=== PATIENT | female | born 1935 | race Caucasian/White ===

== ENCOUNTER 2017-06-01 17:07 | Inpatient (IN) | payer MEDICARE, MEDICAID ==
[~2017-06-01] VITALS: Ht 160 cm; Wt 61.2 kg
[~2017-06-01 17:07] MED LIST: ASPI-1159 PO; BENA20TA3 PO; GLIP10TA10 PO; LOSA1TAB33 PO; MAPAP; METF10002 PO
[2017-06-01 18:52] LABS: PROTHROMBIN TIME 10.2 sec (9.4-11.6)
[2017-06-01 18:58] LABS: CARBON DIOXIDE 23 mEq/L (21-32); CHLORIDE 100 mEq/L (98-107); HEMATOCRIT. 28.4 % (36.0-48.0); HEMOGLOBIN. 9.8 g/dL (12.0-16.0); MEAN CORPUSCULAR HEMOGLOBIN 32.8 pg (28.0-32.0); MEAN CORPUSCULAR VOLUME 94.7 fL (81.0-99.0); MEAN PLATELET VOLUME 7.5 fl (7.4-10.4); PLATELET 259 x1000/uL (130-400); RED CELL DISTRIBUTION WIDTH 12.4 % (11.6-14.6)
[2017-06-01 19:04] LABS: TROPONIN I < 0.02 ng/mL (0.00-0.04)
[2017-06-01] MEDS ORDERED: KETOROLAC 30MG/ML VIAL IV ONE (19:15)
[2017-06-01 19:28] LABS: PLATELET ESTIMATE NORMAL
[2017-06-01] MEDS ORDERED: SODIUM CHLORIDE 0.9% 1,000 ML IV SCH (20:21)
[2017-06-01] MEDS ORDERED: ACETAMINOPHEN 325MG TABLET PO PRN (20:30)
[2017-06-01] MEDS ORDERED: IBUPROFEN 600MG TABLET PO PRN (20:30)
[2017-06-01 23:20] VITALS: BP 118/49
[2017-06-02] VITALS: BP 118/49
[2017-06-02] MEDS ORDERED: PRAV20TA57 PO (00:24)
[2017-06-02] MEDS ORDERED: BENA1TAB21 PO (00:24)
[2017-06-02] MEDS ORDERED: GABA-531 PO (00:24)
[2017-06-02] MEDS ORDERED: LEVO50TA8 PO (00:24)
[2017-06-02] MEDS ORDERED: LISI2.5T47 PO (00:24)
[2017-06-02] MEDS ORDERED: CLONIDINE 0.1MG TABLET PO PRN (01:15)
[2017-06-02] MEDS ORDERED: DEXTROSE 50% WATER 50ML SYRINGE IV PRN (01:15)
[2017-06-02 04:00] VITALS: BP 108/42
[2017-06-02] MEDS: BLOOD SUGAR DIAGNOSTIC STRIP TEST SCH ×4 (06:37→19:58)
[2017-06-02] MEDS: LEVOTHYROXINE SODIUM 50MCG TABLET PO SCH (06:38)
[2017-06-02] MEDS: GABAPENTIN 300MG CAPSULE PO SCH ×3 (06:38→21:53)
[2017-06-02 07:04] LABS: EOSINOPHILS % 1.5 % (0.0-5.0); HEMATOCRIT. 23.4 % (36.0-48.0); HEMOGLOBIN. 8.2 g/dL (12.0-16.0); LYMPHOCYTES % 16.4 % (20.0-50.0); MEAN CORPUSCULAR HEMOGLOBIN 33.2 pg (28.0-32.0); MEAN PLATELET VOLUME 7.4 fl (7.4-10.4); MONOCYTES % 11.7 % (2.0-8.0); NEUTROPHILS % 69.4 % (40.0-76.0); PLATELET 218 x1000/uL (130-400); RED BLOOD CELL COUNT 2.46 mill/uL (4.2-5.4); RED CELL DISTRIBUTION WIDTH 12.4 % (11.6-14.6)
[2017-06-02] MEDS ORDERED: METFORMIN HCL 500MG TABLET PO SCH (07:40)
[2017-06-02] MEDS ORDERED: INSULIN LISPRO 100 UNITS/ML SUBCUT SCH (07:40)
[2017-06-02 08:00] VITALS: BP 120/57
[2017-06-02] MEDS: ASPIRIN 81MG EC TABLET PO SCH (08:43)
[2017-06-02] MEDS: ENOXAPARIN 30MG/0.3ML SYR SUBCUT SCH (08:43)
[2017-06-02] MEDS: AMLODIPINE 10MG TABLET PO SCH (08:45)
[2017-06-02] MEDS: METOPROLOL TARTRATE 25MG TABLET PO SCH ×2 (08:45→21:54)
[2017-06-02] MEDS ORDERED: MEDICATION NOT ON FORMULARY EA (Pravastatin Sodium 1 TAB) PO SCH (09:00)
[2017-06-02] MEDS ORDERED: SODIUM CHLORIDE 0.9% 500 ML IV NR (10:30)
[2017-06-02 12:00] VITALS: BP 118/50
[2017-06-02 12:22] LABS: AMMONIA < 10 uMol/L (<32)
[2017-06-02] MEDS: INSULIN LISPRO 100 UNITS/ML SUBCUT SCH ×3 (12:38→21:56)
[2017-06-02 16:00] VITALS: BP 159/70
[2017-06-02 18:17] LABS: CLARITY URINE TURBID (CLEAR); COLOR URINE YELLOW (YELLOW); GLUCOSE URINE TRACE (NEGATIVE); KETONES URINE NEGATIVE (NEGATIVE); LEUKOCYTE ESTERASE URINE 3+ (NEGATIVE); NITRITE URINE NEGATIVE (NEGATIVE); OCCULT BLOOD URINE 1+ (NEGATIVE); PROTEIN URINE 1+ (NEGATIVE); SPECIFIC GRAVITY URINE 1.016 (1.005-1.030); UROBILINOGEN URINE 0.2 E.U./dL (0.2-1.0)
[2017-06-02 19:14] LABS: *AMPHETAMINES SCREEN URINE NEGATIVE (NEGATIVE); *BARBITURATES SCREEN URINE NEGATIVE (NEGATIVE); *BENZODIAZEPINES SCREEN URINE NEGATIVE (NEGATIVE); *COCAINE SCREEN URINE NEGATIVE (NEGATIVE); CANNABINOID URINE SCREEN NEGATIVE (NEGATIVE); METHADONE URINE SCREEN NEGATIVE (NEGATIVE); OPIATES URINE SCREEN NEGATIVE (NEGATIVE); PHENCYCLIDINE URINE SCREEN NEGATIVE (NEGATIVE)
[2017-06-02 20:00] VITALS: BP 160/60
[2017-06-02] MEDS: SODIUM CHLORIDE 0.9% 1,000 ML IV SCH (21:25)
[2017-06-02] MEDS: ATORVASTATIN CALCIUM 10MG TABLET PO SCH (21:54)
[2017-06-02] MEDS: ACETAMINOPHEN 325MG TABLET PO PRN (21:55)
[2017-06-02 21:56] LABS: HEMATOCRIT. 25.8 % (36.0-48.0); HEMOGLOBIN. 8.9 g/dL (12.0-16.0); MEAN CORPUSCULAR HEMOGLOBIN 32.6 pg (28.0-32.0); MEAN CORPUSCULAR VOLUME 94.2 fL (81.0-99.0); MEAN PLATELET VOLUME 7.7 fl (7.4-10.4); PLATELET 237 x1000/uL (130-400); RED BLOOD CELL COUNT 2.74 mill/uL (4.2-5.4); RED CELL DISTRIBUTION WIDTH 12.5 % (11.6-14.6)
[2017-06-02 22:04] LABS: AMMONIA 24 uMol/L (<32)
[2017-06-02] MEDS: CEFTRIAXONE 1 G PREMIX 50 ML IV SCH (22:09)
[2017-06-02 22:11] LABS: ETHANOL BLOOD < 10 mg/dL; T4 FREE 1.01 ng/dL (0.76-1.46)
[2017-06-02 22:30] LABS: PLATELET ESTIMATE NORMAL
[2017-06-02 23:05] LABS: FOLIC ACID (FOLATE) SERUM 18.8 ng/mL (>5.38)
[2017-06-03] VITALS: BP 112/48
[2017-06-03] MEDS: BLOOD SUGAR DIAGNOSTIC STRIP TEST SCH ×3 (05:54→20:52)
[2017-06-03] MEDS: INSULIN LISPRO 100 UNITS/ML SUBCUT SCH ×3 (05:55→22:02)
[2017-06-03] MEDS: LEVOTHYROXINE SODIUM 50MCG TABLET PO SCH (05:55)
[2017-06-03] MEDS: GABAPENTIN 300MG CAPSULE PO SCH ×3 (05:55→21:01)
[2017-06-03 08:00] VITALS: BP 139/41
[2017-06-03] MEDS: METOPROLOL TARTRATE 25MG TABLET PO SCH ×2 (09:22→20:51)
[2017-06-03] MEDS: AMLODIPINE 10MG TABLET PO SCH ×2 (09:22→22:10)
[2017-06-03] MEDS: ASPIRIN 81MG EC TABLET PO SCH (09:22)
[2017-06-03] MEDS: ENOXAPARIN 30MG/0.3ML SYR SUBCUT SCH (09:28)
[2017-06-03 12:00] VITALS: BP 165/60
[2017-06-03 13:24] LABS: HEMATOCRIT 27.4 % (36.0-48.0); HEMOGLOBIN 9.3 g/dL (12.0-16.0); MEAN CORPUSCULAR HEMOGLOBIN 32.5 pg (28.0-32.0); MEAN CORPUSCULAR VOLUME 95.7 fL (81.0-99.0); PLATELET 249 x1000/uL (130-400); RED BLOOD CELL COUNT 2.86 mill/uL (4.2-5.4); RED CELL DISTRIBUTION WIDTH 12.4 % (11.6-14.6)
[2017-06-03 13:37] LABS: CARBON DIOXIDE 24 mEq/L (21-32); CHLORIDE 101 mEq/L (98-107)
[2017-06-03 16:00] VITALS: BP 160/50
[2017-06-03] MEDS: ACETAMINOPHEN 325MG TABLET PO PRN (18:05)
[2017-06-03 20:00] VITALS: BP 125/44
[2017-06-03] MEDS: ATORVASTATIN CALCIUM 10MG TABLET PO SCH (20:51)
[2017-06-03] MEDS: CEFTRIAXONE 1 G PREMIX 50 ML IV SCH (21:01)
[2017-06-04] VITALS (7 sets, daily range): BP systolic 109–163; BP diastolic 43–66
[2017-06-04] MEDS: SODIUM CHLORIDE 0.9% 1,000 ML IV SCH (02:49)
[2017-06-04] MEDS: ACETAMINOPHEN 325MG TABLET PO PRN (04:43)
[2017-06-04] MEDS: LEVOTHYROXINE SODIUM 50MCG TABLET PO SCH (06:48)
[2017-06-04] MEDS: GABAPENTIN 300MG CAPSULE PO SCH ×2 (06:48→16:31)
[2017-06-04] MEDS: BLOOD SUGAR DIAGNOSTIC STRIP TEST SCH ×3 (06:49→17:10)
[2017-06-04] MEDS: INSULIN LISPRO 100 UNITS/ML SUBCUT SCH ×3 (07:05→18:50)
[2017-06-04] MEDS ORDERED: ENOXAPARIN 40MG/0.4ML SYR SUBCUT SCH (09:00)
[2017-06-04] MEDS: ASPIRIN 81MG EC TABLET PO SCH (09:14)
[2017-06-04] MEDS: METOPROLOL TARTRATE 25MG TABLET PO SCH (09:14)
[2017-06-04] MEDS: AMLODIPINE 10MG TABLET PO SCH (09:14)
== END 2017-06-04 20:30 | disposition home or self-care (01) | DRG 871 ==
LOC: ER 18:19 → 8WST 20:22 → ENRESERV 22:20
PROVIDERS: ADMIT Internal Medicine; ATTEND Internal Medicine
DX: A41.9 Sepsis, unspecified organism (principal); G92 Toxic encephalopathy; I67.4 Hypertensive encephalopathy; N39.0 Urinary tract infection, site not specified; E11.9 Type 2 diabetes mellitus without complications; I10 Essential (primary) hypertension; D64.9 Anemia, unspecified; M19.90 Unspecified osteoarthritis, unspecified site; E03.9 Hypothyroidism, unspecified; E78.00 Pure hypercholesterolemia, unspecified; Z86.73 Personal history of transient ischemic attack (TIA), and cerebral infarction without residual deficits; Z79.84 Long term (current) use of oral hypoglycemic drugs
CPT/HCPCS: 36415; 70450; 70551; 71010; 80048; 80053; 80305; 81001; 82140; 82270; 82607; 82746; 82962; 83036; 84439; 84443; 84481; 84484; 85025; 85027; 85610; 87040; 87077; 87086; 87186; 93005; 93970; 96374; 97162; 97166; 99285; G0482; J0696; J1650; J1815; J1885; J7030; J7040

== ENCOUNTER → 2017-08-31 | Outpatient (CLI) | payer MEDICARE, MEDICAID ==
[~2017-08-31] MED LIST changes: +BENA1TAB21 PO; +GABA-531 PO; +LEVO50TA8 PO; +LISI2.5T47 PO; -LOSA1TAB33 PO; +LOSA1TAB40 PO; -MAPAP; +PRAV20TA57 PO
== END | disposition home or self-care (01) ==
LOC: RAD 10:30
PROVIDERS: ATTEND Specialist
DX: M47.896 Other spondylosis, lumbar region (principal)
CPT/HCPCS: 73521

== ENCOUNTER → 2017-09-30 | Outpatient (CLI) | payer MEDICARE, MEDICAID | END | disposition home or self-care (01) | LOC: MAMMO 11:28 | PROVIDERS: ATTEND Specialist | DX: Z12.31 Encounter for screening mammogram for malignant neoplasm of breast (principal) | CPT/HCPCS: 77067 ==

== ENCOUNTER 2017-10-14 14:18 | Inpatient (IN) | payer MEDICARE, MEDICAID ==
[~2017-10-14] VITALS: Ht 157.5 cm; Wt 46.3 kg
[2017-10-14] MEDS ORDERED: MORPHINE SULFATE 4 MG/ML CPJ (NOT FOR IM USE) IV STA (19:00)
[2017-10-14] MEDS ORDERED: SODIUM CHLORIDE 0.9% 1,000 ML IV ONE ×2 (19:00→21:00)
[2017-10-14] MEDS ORDERED: ONDANSETRON HCL 4MG/2ML VIAL IV STA (19:00)
[2017-10-14 19:48] LABS: PARTIAL THROMBOPLASTIN TIME 26.9 sec (23.4-31.0); PROTHROMBIN TIME 10.3 sec (9.4-11.6)
[2017-10-14 19:54] LABS: BASOPHILS % 0.6 % (0.0-2.0); CARBON DIOXIDE 19 mEq/L (21-32); CHLORIDE 93 mEq/L (98-107); EOSINOPHILS % 1.3 % (0.0-5.0); HEMATOCRIT. 26.5 % (36.0-48.0); HEMOGLOBIN. 9.1 g/dL (12.0-16.0); LYMPHOCYTES % 10.9 % (20.0-50.0); MEAN CORPUSCULAR HEMOGLOBIN 32.2 pg (28.0-32.0); MEAN CORPUSCULAR VOLUME 93.8 fL (81.0-99.0); MONOCYTES % 11.4 % (2.0-8.0); NEUTROPHILS % 75.8 % (40.0-76.0); PLATELET 354 x1000/uL (130-400); RED BLOOD CELL COUNT 2.82 mill/uL (4.2-5.4)
[2017-10-14] MEDS ORDERED: SODIUM POLYSTYRENE SULFONATE 15 G/60 ML BOT PO ONE (21:00)
[2017-10-14 21:51] LABS: CLARITY URINE TURBID (CLEAR); COLOR URINE YELLOW (YELLOW); KETONES URINE NEGATIVE (NEGATIVE); LEUKOCYTE ESTERASE URINE 3+ (NEGATIVE); NITRITE URINE NEGATIVE (NEGATIVE); OCCULT BLOOD URINE 2+ (NEGATIVE); PH URINE 6.5 (4.5-8.0); PROTEIN URINE 3+ (NEGATIVE); SPECIFIC GRAVITY URINE 1.011 (1.005-1.030); UROBILINOGEN URINE 0.2 E.U./dL (0.2-1.0)
[2017-10-14] MEDS ORDERED: CEFTRIAXONE 1 G PREMIX 50 ML IV SCH (22:45)
[2017-10-15] VITALS (7 sets, daily range): BP systolic 105–149; BP diastolic 24–56
[2017-10-15] MEDS ORDERED: DEXTROSE 50% WATER 50ML SYRINGE IV PRN (02:00)
[2017-10-15 07:09] LABS: EOSINOPHILS % 1.2 % (0.0-5.0); HEMOGLOBIN. 7.9 g/dL (12.0-16.0); LYMPHOCYTES % 11.1 % (20.0-50.0); MEAN CORPUSCULAR HEMOGLOBIN 32.6 pg (28.0-32.0); MEAN CORPUSCULAR VOLUME 94.8 fL (81.0-99.0); MEAN PLATELET VOLUME 7.4 fl (7.4-10.4); MONOCYTES % 12.2 % (2.0-8.0); NEUTROPHILS % 74.5 % (40.0-76.0); PLATELET 302 x1000/uL (130-400); RED BLOOD CELL COUNT 2.43 mill/uL (4.2-5.4); RED CELL DISTRIBUTION WIDTH 13.1 % (11.6-14.6)
[2017-10-15] MEDS: BLOOD SUGAR DIAGNOSTIC STRIP TEST SCH ×4 (07:40→21:52)
[2017-10-15] MEDS: INSULIN LISPRO 100 UNITS/ML SUBCUT SCH ×4 (08:10→21:00)
[2017-10-15] MEDS: LEVOTHYROXINE SODIUM 50MCG TABLET PO SCH (08:32)
[2017-10-15] MEDS ORDERED: MEDICATION NOT ON FORMULARY EA (Pravastatin Sodium 1 TAB) PO SCH (09:00)
[2017-10-15] MEDS ORDERED: SODIUM POLYSTYRENE SULFONATE 15 G/60 ML BOT PO SCH (09:30)
[2017-10-15] MEDS: SODIUM CHLORIDE 0.9% 1,000 ML IV SCH (10:27)
[2017-10-15 11:36] LABS: TOTAL IRON BINDING CAPACITY 194 ug/dL (250-450)
[2017-10-15] MEDS: OMEPRAZOLE 20MG CAPSULE EXTENDED RELEASE PO SCH (13:31)
[2017-10-15] MEDS: AMLODIPINE 5MG TABLET PO SCH ×2 (13:31→21:52)
[2017-10-15] MEDS: ATORVASTATIN CALCIUM 10MG TABLET PO SCH (21:51)
[2017-10-15] MEDS: GABAPENTIN 300MG CAPSULE PO SCH (21:52)
[2017-10-16] VITALS: BP 113/40
[2017-10-16] MEDS ORDERED: CEFTRIAXONE 1,000 MG in DEXTROSE 5% WATER 50 ML IV SCH ×2
[2017-10-16] MEDS: SODIUM CHLORIDE 0.9% 1,000 ML IV SCH ×3 (00:59→23:27)
[2017-10-16 04:00] VITALS: BP 132/42
[2017-10-16 06:47] LABS: BASOPHILS % 0.7 % (0.0-2.0); EOSINOPHILS % 0.6 % (0.0-5.0); HEMATOCRIT. 21.3 % (36.0-48.0); HEMOGLOBIN. 7.4 g/dL (12.0-16.0); MEAN CORPUSCULAR HEMOGLOBIN 32.5 pg (28.0-32.0); MEAN CORPUSCULAR VOLUME 93.7 fL (81.0-99.0); MEAN PLATELET VOLUME 7.6 fl (7.4-10.4); MONOCYTES % 9.3 % (2.0-8.0); NEUTROPHILS % 81.4 % (40.0-76.0); PLATELET 287 x1000/uL (130-400); RED BLOOD CELL COUNT 2.28 mill/uL (4.2-5.4); RED CELL DISTRIBUTION WIDTH 12.3 % (11.6-14.6)
[2017-10-16] MEDS: BLOOD SUGAR DIAGNOSTIC STRIP TEST SCH ×4 (07:40→21:02)
[2017-10-16 08:00] VITALS: BP 102/50
[2017-10-16] MEDS: AMLODIPINE 5MG TABLET PO SCH (08:49)
[2017-10-16] MEDS: LEVOTHYROXINE SODIUM 50MCG TABLET PO SCH (08:54)
[2017-10-16] MEDS: OMEPRAZOLE 20MG CAPSULE EXTENDED RELEASE PO SCH (08:54)
[2017-10-16] MEDS: INSULIN LISPRO 100 UNITS/ML SUBCUT SCH ×4 (08:55→21:01)
[2017-10-16] MEDS ORDERED: MAGNESIUM 2 G PREMIX 50 ML IV NR (10:30)
[2017-10-16 12:00] VITALS: BP 127/40
[2017-10-16] MEDS: ONDANSETRON HCL 4MG/2ML VIAL IV PRN (13:53)
[2017-10-16] MEDS: ACETAMINOPHEN 325MG TABLET PO PRN (15:36)
[2017-10-16 16:00] VITALS: BP 105/45
[2017-10-16 20:00] VITALS: BP 128/52
[2017-10-16] MEDS: ATORVASTATIN CALCIUM 10MG TABLET PO SCH (21:01)
[2017-10-16] MEDS: GABAPENTIN 300MG CAPSULE PO SCH (21:01)
[2017-10-17] VITALS (10 sets, daily range): BP systolic 109–178; BP diastolic 41–75
[2017-10-17] MEDS ORDERED: CEFTRIAXONE 1,000 MG in DEXTROSE 5% WATER 50 ML IV SCH ×2
[2017-10-17 07:36] LABS: BASOPHILS % 0.5 % (0.0-2.0); EOSINOPHILS % 1.7 % (0.0-5.0); HEMATOCRIT. 21.4 % (36.0-48.0); HEMOGLOBIN. 7.3 g/dL (12.0-16.0); LYMPHOCYTES % 10.1 % (20.0-50.0); MEAN CORPUSCULAR HEMOGLOBIN 32.1 pg (28.0-32.0); MEAN CORPUSCULAR VOLUME 93.8 fL (81.0-99.0); MEAN PLATELET VOLUME 7.5 fl (7.4-10.4); MONOCYTES % 8.8 % (2.0-8.0); NEUTROPHILS % 78.9 % (40.0-76.0); PLATELET 253 x1000/uL (130-400); RED BLOOD CELL COUNT 2.29 mill/uL (4.2-5.4)
[2017-10-17] MEDS: BLOOD SUGAR DIAGNOSTIC STRIP TEST SCH ×4 (07:40→21:22)
[2017-10-17 07:59] LABS: PHOSPHORUS 6.1 mg/dL (2.5-4.9)
[2017-10-17] MEDS: INSULIN LISPRO 100 UNITS/ML SUBCUT SCH ×4 (08:10→21:33)
[2017-10-17] MEDS: OMEPRAZOLE 20MG CAPSULE EXTENDED RELEASE PO SCH (09:19)
[2017-10-17] MEDS: LEVOTHYROXINE SODIUM 50MCG TABLET PO SCH (09:19)
[2017-10-17 12:42] LABS: BG BASE EXCESS -13.7 mmol/L (-2.0-2.0); BG CARBOXYHEMOGLOBIN 0.3 % (0.5-1.5); BG DEOXYHEMOGLOBIN 7.3 % (0.0-5.0); BG HCO3 ACT 12.5 mmol/L (22.0-26.0); BG METHEMOGLOBIN 0.5 % (0.0-1.5); BG OXYGEN SATURATION 92.6 % (92.0-98.5); BG OXYHEMOGLOBIN 91.9 % (94.0-97.0); BG PCO2 30.4 mmHg (35.0-45.0); BG PH 7.233 (7.350-7.450); BG PO2 73.9 mmHg (75.0-100.0); BG SAMPLE SITE RIGHT BRACHIAL; BG TOTAL HEMOGLOBIN 9.9 g/dL (12.0-18.0); BG VENT MODE ROOM AIR
[2017-10-17] MEDS: CITRIC ACID/SODIUM CITRATE SOLN 30ML UDC PO SCH ×2 (13:13→17:35)
[2017-10-17 17:10] LABS: ANTI-NUCLEAR ANTIBODIES DIRECT Negative (Negative)
[2017-10-17] MEDS: GABAPENTIN 300MG CAPSULE PO SCH (21:33)
[2017-10-17] MEDS: ATORVASTATIN CALCIUM 10MG TABLET PO SCH (21:33)
[2017-10-17 23:13] LABS: BASOPHILS % 0.7 % (0.0-2.0); EOSINOPHILS % 3.1 % (0.0-5.0); HEMATOCRIT. 23.5 % (36.0-48.0); HEMOGLOBIN. 8.3 g/dL (12.0-16.0); LYMPHOCYTES % 8.6 % (20.0-50.0); MEAN CORPUSCULAR HEMOGLOBIN 31.6 pg (28.0-32.0); MEAN CORPUSCULAR VOLUME 89.4 fL (81.0-99.0); MEAN PLATELET VOLUME 7.2 fl (7.4-10.4); MONOCYTES % 6.9 % (2.0-8.0); NEUTROPHILS % 80.7 % (40.0-76.0); PLATELET 277 x1000/uL (130-400); RED BLOOD CELL COUNT 2.63 mill/uL (4.2-5.4); RED CELL DISTRIBUTION WIDTH 13.5 % (11.6-14.6)
[2017-10-18] VITALS: BP 141/48
[2017-10-18] MEDS: CEFTRIAXONE 1 G PREMIX 50 ML IV SCH ×2 (00:24→23:48)
[2017-10-18 04:00] VITALS: BP_SYST 136; BP_SYST 98; BP_DIAS 44; BP_DIAS 59
[2017-10-18] MEDS: BLOOD SUGAR DIAGNOSTIC STRIP TEST SCH ×4 (07:40→20:18)
[2017-10-18 08:03] VITALS: BP 155/58
[2017-10-18] MEDS: INSULIN LISPRO 100 UNITS/ML SUBCUT SCH ×4 (08:10→20:21)
[2017-10-18] MEDS: LEVOTHYROXINE SODIUM 50MCG TABLET PO SCH (08:43)
[2017-10-18] MEDS: CITRIC ACID/SODIUM CITRATE SOLN 30ML UDC PO SCH ×3 (08:44→17:53)
[2017-10-18] MEDS: FAMOTIDINE 20MG TABLET PO SCH (08:44)
[2017-10-18 08:58] LABS: BASOPHILS % 1.3 % (0.0-2.0); EOSINOPHILS % 3.8 % (0.0-5.0); HEMATOCRIT. 26.3 % (36.0-48.0); HEMOGLOBIN. 9.3 g/dL (12.0-16.0); LYMPHOCYTES % 10.7 % (20.0-50.0); MEAN CORPUSCULAR HEMOGLOBIN 31.6 pg (28.0-32.0); MEAN CORPUSCULAR VOLUME 89.2 fL (81.0-99.0); MEAN PLATELET VOLUME 7.1 fl (7.4-10.4); MONOCYTES % 7.3 % (2.0-8.0); NEUTROPHILS % 76.9 % (40.0-76.0); PLATELET 325 x1000/uL (130-400); RED BLOOD CELL COUNT 2.95 mill/uL (4.2-5.4); RED CELL DISTRIBUTION WIDTH 13.7 % (11.6-14.6)
[2017-10-18 09:00] LABS: PHOSPHORUS 6.4 mg/dL (2.5-4.9)
[2017-10-18] MEDS: ONDANSETRON HCL 4MG/2ML VIAL IV PRN (09:36)
[2017-10-18 12:00] VITALS: BP 100/57
[2017-10-18 16:00] VITALS: BP 160/45
[2017-10-18] MEDS: SEVELAMER CARBONATE 800 MG TABLET PO SCH (17:55)
[2017-10-18 20:00] VITALS: BP 142/43
[2017-10-18] MEDS: GABAPENTIN 300MG CAPSULE PO SCH (20:23)
[2017-10-18] MEDS: ATORVASTATIN CALCIUM 10MG TABLET PO SCH (20:23)
[2017-10-19] VITALS (12 sets, daily range): BP systolic 135–198; BP diastolic 46–84
[2017-10-19] MEDS ORDERED: ZOLPIDEM TARTRATE 5MG TABLET PO PRN (00:30)
[2017-10-19] MEDS ORDERED: LORAZEPAM 2MG/ML CPJ IV PRN (00:30)
[2017-10-19 05:59] LABS: BASOPHILS % 2.1 % (0.0-2.0); EOSINOPHILS % 4.5 % (0.0-5.0); HEMATOCRIT. 24.7 % (36.0-48.0); HEMOGLOBIN. 8.6 g/dL (12.0-16.0); LYMPHOCYTES % 18.9 % (20.0-50.0); MEAN CORPUSCULAR HEMOGLOBIN 31.2 pg (28.0-32.0); MEAN CORPUSCULAR VOLUME 89.2 fL (81.0-99.0); MONOCYTES % 11.1 % (2.0-8.0); NEUTROPHILS % 63.4 % (40.0-76.0); PLATELET 323 x1000/uL (130-400); RED BLOOD CELL COUNT 2.77 mill/uL (4.2-5.4); RED CELL DISTRIBUTION WIDTH 13.9 % (11.6-14.6)
[2017-10-19] MEDS: BLOOD SUGAR DIAGNOSTIC STRIP TEST SCH ×4 (06:22→21:49)
[2017-10-19] MEDS: INSULIN LISPRO 100 UNITS/ML SUBCUT SCH ×4 (07:31→21:56)
[2017-10-19] MEDS ORDERED: LIDOCAINE HCL 1% 20ML VIAL (Pyxis) INJ ONE (08:01)
[2017-10-19] MEDS ORDERED: SODIUM BICARBONATE 4% (2.4MEQ) 5ML VIAL IV ONE (08:01)
[2017-10-19] MEDS ORDERED: FENTANYL CITRATE/PF 50MCG/ML 2ML VIAL IV ONE (08:05)
[2017-10-19] MEDS ORDERED: FENTANYL CITRATE/PF 50MCG/ML 2ML VIAL ONE (08:16)
[2017-10-19] MEDS: LEVOTHYROXINE SODIUM 50MCG TABLET PO SCH (08:50)
[2017-10-19] MEDS: FAMOTIDINE 20MG TABLET PO SCH (08:52)
[2017-10-19] MEDS: CITRIC ACID/SODIUM CITRATE SOLN 30ML UDC PO SCH ×3 (08:52→17:57)
[2017-10-19] MEDS: SEVELAMER CARBONATE 800 MG TABLET PO SCH ×3 (08:52→17:57)
[2017-10-19] MEDS ORDERED: POTASSIUM CHLORIDE 20MEQ TABLET SR PO SCH (09:00)
[2017-10-19] MEDS ORDERED: FENTANYL CITRATE/PF 50MCG/ML 2ML VIAL IV SCH (09:30)
[2017-10-19 12:04] LABS: HEPATITIS B SURFACE ANTIGEN NEGATIVE
[2017-10-19 12:31] LABS: HEPATITIS B CORE AB IGM NEGATIVE
[2017-10-19 12:32] LABS: HEPATITIS A AB IGM NEGATIVE (NEGATIVE)
[2017-10-19] MEDS: GABAPENTIN 300MG CAPSULE PO SCH (21:55)
[2017-10-19] MEDS: ATORVASTATIN CALCIUM 10MG TABLET PO SCH (21:55)
[2017-10-19] MEDS: AMLODIPINE 5MG TABLET PO SCH (21:55)
[2017-10-20] VITALS: BP 144/57
[2017-10-20] MEDS: CEFTRIAXONE 1 G PREMIX 50 ML IV SCH (01:58)
[2017-10-20 04:00] VITALS: BP 135/51
[2017-10-20 05:25] LABS: COMPLEMENT C3 125 mg/dL (82-167)
[2017-10-20] MEDS: BLOOD SUGAR DIAGNOSTIC STRIP TEST SCH ×4 (05:44→20:58)
[2017-10-20 06:24] LABS: BASOPHILS % 1.2 % (0.0-2.0); EOSINOPHILS % 3.7 % (0.0-5.0); HEMATOCRIT. 25.8 % (36.0-48.0); HEMOGLOBIN. 9.1 g/dL (12.0-16.0); LYMPHOCYTES % 23.4 % (20.0-50.0); MEAN CORPUSCULAR HEMOGLOBIN 31.3 pg (28.0-32.0); MEAN CORPUSCULAR VOLUME 89.2 fL (81.0-99.0); MEAN PLATELET VOLUME 6.8 fl (7.4-10.4); MONOCYTES % 14.6 % (2.0-8.0); NEUTROPHILS % 57.1 % (40.0-76.0); PLATELET 343 x1000/uL (130-400); RED CELL DISTRIBUTION WIDTH 13.8 % (11.6-14.6)
[2017-10-20] MEDS: INSULIN LISPRO 100 UNITS/ML SUBCUT SCH ×4 (07:57→21:09)
[2017-10-20 08:00] VITALS: BP 160/47
[2017-10-20] MEDS: FAMOTIDINE 20MG TABLET PO SCH (08:05)
[2017-10-20] MEDS: LEVOTHYROXINE SODIUM 50MCG TABLET PO SCH (08:05)
[2017-10-20] MEDS: CITRIC ACID/SODIUM CITRATE SOLN 30ML UDC PO SCH ×3 (08:05→17:30)
[2017-10-20] MEDS: AMLODIPINE 5MG TABLET PO SCH ×2 (08:06→20:59)
[2017-10-20] MEDS: SEVELAMER CARBONATE 800 MG TABLET PO SCH ×3 (08:06→17:32)
[2017-10-20] MEDS ORDERED: POTASSIUM CHLORIDE 20MEQ TABLET SR PO SCH (09:45)
[2017-10-20 12:00] VITALS: BP 147/50
[2017-10-20] MEDS: NEBIVOLOL HCL 5 MG TABLET PO SCH (14:24)
[2017-10-20 16:00] VITALS: BP 142/49
[2017-10-20 20:00] VITALS: BP 124/48
[2017-10-20] MEDS: ATORVASTATIN CALCIUM 10MG TABLET PO SCH (20:59)
[2017-10-20] MEDS: GABAPENTIN 300MG CAPSULE PO SCH (20:59)
[2017-10-21] VITALS: BP 128/45
[2017-10-21] MEDS: CEFTRIAXONE 1 G PREMIX 50 ML IV SCH (00:24)
[2017-10-21 04:00] VITALS: BP 144/52
[2017-10-21] MEDS: BLOOD SUGAR DIAGNOSTIC STRIP TEST SCH ×4 (05:53→21:01)
[2017-10-21] MEDS: ACETAMINOPHEN 325MG TABLET PO PRN (06:32)
[2017-10-21 07:14] LABS: BASOPHILS % 1.3 % (0.0-2.0); EOSINOPHILS % 3.4 % (0.0-5.0); HEMATOCRIT. 25.7 % (36.0-48.0); HEMOGLOBIN. 8.9 g/dL (12.0-16.0); MEAN CORPUSCULAR HEMOGLOBIN 31.3 pg (28.0-32.0); MEAN CORPUSCULAR VOLUME 90.4 fL (81.0-99.0); MEAN PLATELET VOLUME 6.9 fl (7.4-10.4); MONOCYTES % 13.5 % (2.0-8.0); NEUTROPHILS % 57.8 % (40.0-76.0); PLATELET 321 x1000/uL (130-400); RED BLOOD CELL COUNT 2.84 mill/uL (4.2-5.4); RED CELL DISTRIBUTION WIDTH 13.7 % (11.6-14.6)
[2017-10-21] MEDS: INSULIN LISPRO 100 UNITS/ML SUBCUT SCH ×4 (07:43→21:35)
[2017-10-21 08:00] VITALS: BP 124/35
[2017-10-21] MEDS: LEVOTHYROXINE SODIUM 50MCG TABLET PO SCH (08:12)
[2017-10-21] MEDS: AMLODIPINE 5MG TABLET PO SCH ×2 (08:12→20:58)
[2017-10-21] MEDS: CITRIC ACID/SODIUM CITRATE SOLN 30ML UDC PO SCH (08:12)
[2017-10-21] MEDS: SEVELAMER CARBONATE 800 MG TABLET PO SCH ×3 (08:12→18:18)
[2017-10-21] MEDS: FAMOTIDINE 20MG TABLET PO SCH (08:12)
[2017-10-21] MEDS: NEBIVOLOL HCL 5 MG TABLET PO SCH (08:12)
[2017-10-21] MEDS ORDERED: POTASSIUM CHLORIDE 20MEQ TABLET SR PO SCH (10:00)
[2017-10-21 12:00] VITALS: BP 127/50
[2017-10-21 13:04] LABS: PARTIAL THROMBOPLASTIN TIME 26.1 sec (23.4-31.0); PROTHROMBIN TIME 10.9 sec (9.4-11.6)
[2017-10-21] MEDS ORDERED: SODIUM BICARBONATE 4% (2.4MEQ) 5ML VIAL IV ONE (13:30)
[2017-10-21] MEDS ORDERED: LIDOCAINE HCL 1% 20ML VIAL (Pyxis) INJ ONE (13:30)
[2017-10-21 16:00] VITALS: BP 154/54
[2017-10-21 20:00] VITALS: BP 126/44
[2017-10-21] MEDS: GABAPENTIN 300MG CAPSULE PO SCH (20:57)
[2017-10-21] MEDS: ATORVASTATIN CALCIUM 10MG TABLET PO SCH (20:57)
[2017-10-22] VITALS: BP 134/46
[2017-10-22] MEDS: CEFTRIAXONE 1 G PREMIX 50 ML IV SCH (00:10)
[2017-10-22] MEDS: ACETAMINOPHEN 325MG TABLET PO PRN (00:18)
[2017-10-22 04:00] VITALS: BP 130/51
[2017-10-22] MEDS: BLOOD SUGAR DIAGNOSTIC STRIP TEST SCH (06:21)
[2017-10-22 06:40] LABS: BASOPHILS % 1.3 % (0.0-2.0); EOSINOPHILS % 5.2 % (0.0-5.0); HEMATOCRIT. 25.8 % (36.0-48.0); HEMOGLOBIN. 9.1 g/dL (12.0-16.0); LYMPHOCYTES % 22.5 % (20.0-50.0); MEAN CORPUSCULAR HEMOGLOBIN 31.9 pg (28.0-32.0); MEAN CORPUSCULAR VOLUME 90.8 fL (81.0-99.0); MEAN PLATELET VOLUME 6.8 fl (7.4-10.4); MONOCYTES % 10.6 % (2.0-8.0); NEUTROPHILS % 60.4 % (40.0-76.0); PLATELET 328 x1000/uL (130-400); RED BLOOD CELL COUNT 2.84 mill/uL (4.2-5.4); RED CELL DISTRIBUTION WIDTH 13.4 % (11.6-14.6)
[2017-10-22 08:00] VITALS: BP 142/48
[2017-10-22] MEDS: INSULIN LISPRO 100 UNITS/ML SUBCUT SCH (08:10)
[2017-10-22] MEDS: LEVOTHYROXINE SODIUM 50MCG TABLET PO SCH (09:02)
[2017-10-22] MEDS: SEVELAMER CARBONATE 800 MG TABLET PO SCH (09:03)
[2017-10-22] MEDS: AMLODIPINE 5MG TABLET PO SCH (09:03)
[2017-10-22] MEDS: FAMOTIDINE 20MG TABLET PO SCH (09:04)
[2017-10-22] MEDS: NEBIVOLOL HCL 5 MG TABLET PO SCH (09:04)
[2017-10-22 11:49] VITALS: BP 152/49
[2017-10-22 12:00] VITALS: BP 152/59
== END 2017-10-22 12:30 | disposition home or self-care (01) | DRG 674 ==
LOC: ER 16:31 → 7WST 23:10 → ENRESERV 23:35
PROVIDERS: ADMIT Internal Medicine; ATTEND Family Medicine Adult Medicine
PROC: 0JH63XZ Insertion of Tunneled Vascular Access Device into Chest Subcutaneous Tissue and Fascia, Percutaneous Approach (ICD-10-PCS; principal; 2017-10-19)
PROC: B548ZZA Ultrasonography of Superior Vena Cava, Guidance (ICD-10-PCS; 2017-10-19)
PROC: 02HV33Z Insertion of Infusion Device into Superior Vena Cava, Percutaneous Approach (ICD-10-PCS; 2017-10-19)
PROC: B5181ZA Fluoroscopy of Superior Vena Cava using Low Osmolar Contrast, Guidance (ICD-10-PCS; 2017-10-19)
PROC: 0JPT3XZ Removal of Tunneled Vascular Access Device from Trunk Subcutaneous Tissue and Fascia, Percutaneous Approach (ICD-10-PCS; 2017-10-21)
PROC: 02PYX3Z Removal of Infusion Device from Great Vessel, External Approach (ICD-10-PCS; 2017-10-21)
DX: N17.0 Acute kidney failure with tubular necrosis (principal); E87.2 Acidosis; E46 Unspecified protein-calorie malnutrition; E11.22 Type 2 diabetes mellitus with diabetic chronic kidney disease; E11.51 Type 2 diabetes mellitus with diabetic peripheral angiopathy without gangrene; N39.0 Urinary tract infection, site not specified; E87.1 Hypo-osmolality and hyponatremia; E87.5 Hyperkalemia; E78.5 Hyperlipidemia, unspecified; D64.9 Anemia, unspecified; E03.9 Hypothyroidism, unspecified; I12.9 Hypertensive chronic kidney disease with stage 1 through stage 4 chronic kidney disease, or unspecified chronic kidney disease; N18.9 Chronic kidney disease, unspecified; E87.70 Fluid overload, unspecified; B96.20 Unspecified Escherichia coli [E. coli] as the cause of diseases classified elsewhere; E78.00 Pure hypercholesterolemia, unspecified; I25.10 Atherosclerotic heart disease of native coronary artery without angina pectoris
CPT/HCPCS: 36415; 36558; 36589; 36600; 71045; 74176; 76770; 76937; 77001; 80048; 80053; 80061; 81001; 82375; 82533; 82550; 82575; 82805; 82962; 83540; 83550; 83690; 83735; 83930; 84100; 84443; 85025; 85610; 85730; 86038; 86160; 86705; 86706; 86709; 86803; 86850; 86900; 86920; 87040; 87077; 87086; 87186; 87340; 87804; 93005; 93306; 96361; 96365; 96375; 99285; C1750; C1769; C1893; J0696; J1642; J1815; J2270; J2405; J3010; J3475; J3490; J7030; J7040; J7050; J7060; P9016; A4315

== ENCOUNTER → 2017-12-16 | Outpatient (CLI) | payer MEDICARE, MEDICAID ==
[~2017-12-16] MED LIST changes: -BENA1TAB21 PO; -BENA20TA3 PO; -LISI2.5T47 PO; -LOSA1TAB40 PO; -METF10002 PO
[2017-12-16 10:51] LABS: BASOPHILS % 1.1 % (0.0-2.0); EOSINOPHILS % 2.3 % (0.0-5.0); HEMATOCRIT. 31.6 % (36.0-48.0); HEMOGLOBIN. 10.6 g/dL (12.0-16.0); LYMPHOCYTES % 30.9 % (20.0-50.0); MEAN CORPUSCULAR HEMOGLOBIN 32.1 pg (28.0-32.0); MEAN CORPUSCULAR VOLUME 95.4 fL (81.0-99.0); MEAN PLATELET VOLUME 7.4 fl (7.4-10.4); MONOCYTES % 8.5 % (2.0-8.0); NEUTROPHILS % 57.2 % (40.0-76.0); PLATELET 304 x1000/uL (130-400); RED BLOOD CELL COUNT 3.31 mill/uL (4.2-5.4); RED CELL DISTRIBUTION WIDTH 15.4 % (11.6-14.6)
[2017-12-16 11:13] LABS: CHLORIDE 114 mEq/L (98-107)
== END | disposition home or self-care (01) ==
LOC: LAB 10:22
PROVIDERS: ATTEND Specialist
DX: I11.9 Hypertensive heart disease without heart failure (principal); E78.2 Mixed hyperlipidemia
CPT/HCPCS: 36415; 80053; 85025

== ENCOUNTER 2022-07-01 01:11 | Inpatient (IN) | payer MEDICARE, MEDICAID ==
[~2022-07-01] VITALS: Ht 142.2 cm; Wt 48.6 kg
[~2022-07-01 01:11] MED LIST changes: -ASPI-1159 PO; +ASPI-1497 PO; +DOXA2TAB2 PO; -GABA-531 PO; -GLIP10TA10 PO; +NEBI10TA2 PO; +SITA25TA3 PO
[2022-07-01] MEDS ORDERED: SODIUM CHLORIDE 0.9% 1,000 ML IV ONE (02:00)
[2022-07-01 02:43] LABS: HEMATOCRIT. 21.5 % (36.0-48.0); HEMOGLOBIN. 7.4 g/dL (12.0-16.0); MEAN CORPUSCULAR HEMOGLOBIN 34.7 pg (28.0-32.0); MEAN CORPUSCULAR VOLUME 101.4 fL (81.0-99.0); MEAN PLATELET VOLUME 8.3 fl (7.4-10.4); PLATELET 124 x1000/uL (130-400); RED BLOOD CELL COUNT 2.12 mill/uL (4.2-5.4); RED CELL DISTRIBUTION WIDTH 17.2 % (11.6-14.6)
[2022-07-01 02:50] LABS: CHLORIDE 110 mEq/L (98-107)
[2022-07-01] MEDS ORDERED: PANTOPRAZOLE SODIUM 40 MG/VIAL IV ONE (03:00)
[2022-07-01] MEDS ORDERED: ACETAMINOPHEN 500MG TABLET PO ONE (03:00)
[2022-07-01 05:37] LABS: ATYPICAL LYMPHOCYTES 1; PLATELET ESTIMATE DECREASED
[2022-07-01] MEDS ORDERED: SODIUM CHLORIDE 0.9% 250 ML IV ONE (05:45)
[2022-07-01] MEDS ORDERED: NA PHOS,M-B/NA PHOS,DI-BA ENEMA 118ML PR PRN (07:15)
[2022-07-01] MEDS ORDERED: IPRATROPIUM/ALBUTEROL 0.5-3(2.5)MG/3ML NEB NEB PRN (07:15)
[2022-07-01] MEDS ORDERED: ACETAMINOPHEN 325MG TABLET PO PRN ×2 (07:15)
[2022-07-01] MEDS ORDERED: MAGNESIUM/ALUMINUM HYDROXIDE/SIMETHICONE 30ML UDC PO PRN (07:15)
[2022-07-01] MEDS ORDERED: ONDANSETRON HCL 4MG/2ML INJ IV PRN (07:15)
[2022-07-01] MEDS ORDERED: DOCUSATE SODIUM 100MG CAPSULE PO PRN (07:15)
[2022-07-01] MEDS ORDERED: MEROPENEM 1,000 MG in SODIUM CHLORIDE 0.9% 100 ML IV SCH (07:30)
[2022-07-01] MEDS ORDERED: PANTOPRAZOLE 80 MG in SODIUM CHLORIDE 0.9% 100 ML IV SCH ×4 (08:00)
[2022-07-01] MEDS ORDERED: VANCOMYCIN 750MG PMX (XELLIA) 150 ML IV NR ×2 (08:00→13:00)
[2022-07-01 08:36] LABS: T4 FREE 0.87 ng/dL (0.76-1.46)
[2022-07-01 09:12] LABS: CLARITY URINE TURBID (CLEAR); COLOR URINE YELLOW (YELLOW); KETONES URINE TRACE (NEGATIVE); LEUKOCYTE ESTERASE URINE 3+ (NEGATIVE); NITRITE URINE NEGATIVE (NEGATIVE); OCCULT BLOOD URINE 2+ (NEGATIVE); PROTEIN URINE 3+ (NEGATIVE); SPECIFIC GRAVITY URINE 1.016 (1.005-1.030); UROBILINOGEN URINE 0.2 E.U./dL (0.2-1.0)
[2022-07-01 10:00] VITALS: BP_SYST 92; BP_SYST 96; BP_DIAS 26
[2022-07-01] MEDS: DEXT 5%/LACTATED RINGERS 1,000 ML IV SCH ×2 (10:00→21:49)
[2022-07-01 10:09] LABS: *AMPHETAMINES SCREEN URINE NEGATIVE (NEGATIVE); *BARBITURATES SCREEN URINE NEGATIVE (NEGATIVE); *BENZODIAZEPINES SCREEN URINE NEGATIVE (NEGATIVE); *COCAINE SCREEN URINE NEGATIVE (NEGATIVE); CANNABINOID URINE SCREEN NEGATIVE (NEGATIVE); METHADONE URINE SCREEN NEGATIVE (NEGATIVE); OPIATES URINE SCREEN NEGATIVE (NEGATIVE); PHENCYCLIDINE URINE SCREEN NEGATIVE (NEGATIVE)
[2022-07-01 12:00] VITALS: BP 104/21
[2022-07-01 12:50] LABS: VITAMIN B12 SERUM 450 pg/mL (211-911)
[2022-07-01] MEDS: MEROPENEM 500MG in NORMAL SALINE 50ML IV SCH ×2 (13:05→21:50)
[2022-07-01 16:00] VITALS: BP 131/48
[2022-07-01 16:14] LABS: INR 1.1; PROTHROMBIN TIME 11.4 sec (9.6-11.0)
[2022-07-01 20:00] VITALS: BP 138/35
[2022-07-02] VITALS (12 sets, daily range): BP systolic 111–189; BP diastolic 46–60
[2022-07-02] MEDS: CLONIDINE 0.1MG TABLET PO PRN ×2 (05:07→19:05)
[2022-07-02] MEDS: LEVOTHYROXINE SODIUM 25MCG TABLET PO SCH (06:38)
[2022-07-02 06:43] LABS: MEAN CORPUSCULAR HEMOGLOBIN 34.8 pg (28.0-32.0); MEAN CORPUSCULAR VOLUME 100.3 fL (81.0-99.0); MEAN PLATELET VOLUME 7.3 fl (7.4-10.4); PLATELET 107 x1000/uL (130-400); RED CELL DISTRIBUTION WIDTH 16.9 % (11.6-14.6)
[2022-07-02 07:02] LABS: CHLORIDE 116 mEq/L (98-107)
[2022-07-02 07:04] LABS: HEMATOCRIT. 20.1 % (36.0-48.0)
[2022-07-02 07:22] LABS: PHOSPHORUS 3.5 mg/dL (2.5-4.9)
[2022-07-02] MEDS: MEROPENEM 500MG in NORMAL SALINE 50ML IV SCH ×2 (08:56→22:50)
[2022-07-02] MEDS: PANTOPRAZOLE SODIUM 40 MG/VIAL IV SCH ×2 (08:56→17:00)
[2022-07-02] MEDS: DEXT 5%/LACTATED RINGERS 1,000 ML IV SCH ×2 (08:57→23:15)
[2022-07-02] MEDS ORDERED: FILGRASTIM-TBO 300 MCG/0.5 ML SYRINGE SQ SCH (11:00)
[2022-07-02 14:14] LABS: ATYPICAL LYMPHOCYTES 2
[2022-07-02 14:15] LABS: PLATELET ESTIMATE DECREASED
[2022-07-02] MEDS ORDERED: VANCOMYCIN 500MG PREMIX 100 ML IV SCH (16:00)
[2022-07-02 17:20] LABS: HEMOGLOBIN 6.9 g/dL (12.0-16.0)
[2022-07-02 17:21] LABS: HEMATOCRIT 20.1 % (36.0-48.0)
[2022-07-03] VITALS (10 sets, daily range): BP systolic 104–210; BP diastolic 49–80
[2022-07-03] MEDS: CLONIDINE 0.1MG TABLET PO PRN ×3 (04:43→13:02)
[2022-07-03] MEDS: LEVOTHYROXINE SODIUM 25MCG TABLET PO SCH (05:56)
[2022-07-03 08:56] LABS: CHLORIDE 115 mEq/L (98-107)
[2022-07-03] MEDS: MEROPENEM 500MG in NORMAL SALINE 50ML IV SCH ×2 (10:17→20:24)
[2022-07-03] MEDS: AMLODIPINE 10MG TABLET PO SCH (10:17)
[2022-07-03] MEDS: PANTOPRAZOLE SODIUM 40 MG/VIAL IV SCH ×2 (10:18→15:43)
[2022-07-03 12:39] LABS: BASOPHILS % 0.8 % (0.0-2.0); EOSINOPHILS % 1.3 % (0.0-5.0); HEMATOCRIT. 33.1 % (36.0-48.0); HEMOGLOBIN. 11.6 g/dL (12.0-16.0); LYMPHOCYTES % 29.3 % (20.0-50.0); MEAN CORPUSCULAR HEMOGLOBIN 33.2 pg (28.0-32.0); MEAN CORPUSCULAR VOLUME 94.6 fL (81.0-99.0); MEAN PLATELET VOLUME 7.8 fl (7.4-10.4); MONOCYTES % 9.1 % (2.0-8.0); NEUTROPHILS % 59.5 % (40.0-76.0); PLATELET 87 x1000/uL (130-400); RED BLOOD CELL COUNT 3.49 mill/uL (4.2-5.4); RED CELL DISTRIBUTION WIDTH 18.4 % (11.6-14.6)
[2022-07-03] MEDS: DEXT 5%/LACTATED RINGERS 1,000 ML IV SCH (13:04)
[2022-07-03] MEDS: NITROGLYCERIN OINT 1GM/INCH UDPKT TD SCH ×2 (15:43→21:29)
[2022-07-03] MEDS ORDERED: VANCOMYCIN 750MG PREMIX 150 ML IV SCH (21:00)
[2022-07-03] MEDS ORDERED: FILGRASTIM-TBO 300 MCG/0.5 ML SYRINGE SQ SCH (21:00)
[2022-07-03 22:33] LABS: HEMATOCRIT 31.3 % (36.0-48.0); HEMOGLOBIN 10.7 g/dL (12.0-16.0)
[2022-07-04] VITALS (7 sets, daily range): BP systolic 146–176; BP diastolic 50–71
[2022-07-04] MEDS: DEXT 5%/LACTATED RINGERS 1,000 ML IV SCH ×2 (00:06→17:52)
[2022-07-04] MEDS: LEVOTHYROXINE SODIUM 25MCG TABLET PO SCH (05:21)
[2022-07-04] MEDS: NITROGLYCERIN OINT 1GM/INCH UDPKT TD SCH ×3 (05:21→21:31)
[2022-07-04 06:38] LABS: BASOPHILS % 0.9 % (0.0-2.0); EOSINOPHILS % 1.3 % (0.0-5.0); HEMATOCRIT. 30.2 % (36.0-48.0); HEMOGLOBIN. 10.7 g/dL (12.0-16.0); LYMPHOCYTES % 24.6 % (20.0-50.0); MEAN CORPUSCULAR HEMOGLOBIN 33.3 pg (28.0-32.0); MEAN CORPUSCULAR VOLUME 94.2 fL (81.0-99.0); MEAN PLATELET VOLUME 8.1 fl (7.4-10.4); MONOCYTES % 7.6 % (2.0-8.0); NEUTROPHILS % 65.6 % (40.0-76.0); PLATELET 86 x1000/uL (130-400); RED BLOOD CELL COUNT 3.21 mill/uL (4.2-5.4); RED CELL DISTRIBUTION WIDTH 17.9 % (11.6-14.6)
[2022-07-04 06:51] LABS: CHLORIDE 111 mEq/L (98-107)
[2022-07-04 07:29] LABS: HAPTOGLOBIN < 8 mg/dL (30-200)
[2022-07-04] MEDS: AMLODIPINE 10MG TABLET PO SCH (09:12)
[2022-07-04] MEDS: CYANOCOBALAMIN 1000MCG/ML VIAL IM SCH (09:12)
[2022-07-04] MEDS: PANTOPRAZOLE SODIUM 40 MG/VIAL IV SCH ×2 (09:12→17:48)
[2022-07-04] MEDS: MEROPENEM 500MG in NORMAL SALINE 50ML IV SCH ×2 (09:13→21:31)
[2022-07-04] MEDS ORDERED: SORBITOL 70% SOLN 30ML PO NR ×2 (10:45→14:00)
[2022-07-04] MEDS ORDERED: DOCUSATE SODIUM 100MG CAPSULE PO SCH (10:45)
[2022-07-04] MEDS ORDERED: LEVOTHYROXINE SODIUM 25MCG TABLET PO SCH (10:45)
[2022-07-04] MEDS ORDERED: BISACODYL 5MG TABLET PO NR (11:00)
[2022-07-04] MEDS: METOCLOPRAMIDE HCL 10MG/2ML VIAL IV SCH ×2 (11:14→17:46)
[2022-07-04] MEDS ORDERED: PROPOFOL 200MG/20ML VIAL IV ONE (15:08)
[2022-07-04] MEDS ORDERED: ONDANSETRON HCL 4MG/2ML INJ ONE (15:08)
[2022-07-04] MEDS ORDERED: DEXAMETHASONE 4MG/ML 1ML VIAL ONE (15:33)
[2022-07-04] MEDS ORDERED: MINERAL OIL ENEMA 133ML PR NR (16:00)
[2022-07-04] MEDS: DOCUSATE SODIUM 100MG CAPSULE PO SCH (17:46)
[2022-07-04] MEDS: SENNOSIDES/DOCUSATE SOD 8.6/50MG TABLET PO SCH (21:30)
[2022-07-04 23:11] LABS: HEMATOCRIT 31.3 % (36.0-48.0); HEMOGLOBIN 10.8 g/dL (12.0-16.0)
[2022-07-05] VITALS: BP 152/52
[2022-07-05] MEDS: METOCLOPRAMIDE HCL 10MG/2ML VIAL IV SCH ×5 (00:37→23:24)
[2022-07-05 04:00] VITALS: BP 162/56
[2022-07-05] MEDS: LEVOTHYROXINE SODIUM 25MCG TABLET PO SCH (05:43)
[2022-07-05] MEDS: NITROGLYCERIN OINT 1GM/INCH UDPKT TD SCH ×3 (05:43→21:29)
[2022-07-05] MEDS: DEXT 5%/LACTATED RINGERS 1,000 ML IV SCH (05:43)
[2022-07-05 08:00] VITALS: BP 161/56
[2022-07-05] MEDS: PANTOPRAZOLE SODIUM 40 MG/VIAL IV SCH ×2 (08:42→17:09)
[2022-07-05] MEDS: CYANOCOBALAMIN 1000MCG/ML VIAL IM SCH (08:43)
[2022-07-05] MEDS: MEROPENEM 500MG in NORMAL SALINE 50ML IV SCH ×2 (08:43→21:28)
[2022-07-05] MEDS: AMLODIPINE 10MG TABLET PO SCH (08:43)
[2022-07-05] MEDS: DOCUSATE SODIUM 100MG CAPSULE PO SCH ×2 (09:00→17:00)
[2022-07-05 09:22] LABS: HEMATOCRIT. 31.6 % (36.0-48.0); MEAN CORPUSCULAR HEMOGLOBIN 33.1 pg (28.0-32.0); PLATELET 83 x1000/uL (130-400); RED BLOOD CELL COUNT 3.32 mill/uL (4.2-5.4); RED CELL DISTRIBUTION WIDTH 17.7 % (11.6-14.6)
[2022-07-05 11:15] LABS: PLATELET ESTIMATE DECREASED
[2022-07-05 12:00] VITALS: BP 153/52
[2022-07-05 16:00] VITALS: BP 139/52
[2022-07-05 18:29] LABS: HEMATOCRIT 29.2 % (36.0-48.0); HEMOGLOBIN 10.1 g/dL (12.0-16.0)
[2022-07-05 20:00] VITALS: BP 154/50
[2022-07-05] MEDS: SENNOSIDES/DOCUSATE SOD 8.6/50MG TABLET PO SCH (20:28)
[2022-07-05 23:51] LABS: HEMATOCRIT 29.9 % (36.0-48.0); HEMOGLOBIN 10.3 g/dL (12.0-16.0)
[2022-07-06] VITALS (7 sets, daily range): BP systolic 109–165; BP diastolic 41–64
[2022-07-06] MEDS: METOCLOPRAMIDE HCL 10MG/2ML VIAL IV SCH ×2 (05:30→13:20)
[2022-07-06] MEDS: GUAIFENESIN 200MG/10ML SUGAR FREE UDC PO PRN ×3 (05:36→20:45)
[2022-07-06] MEDS: NITROGLYCERIN OINT 1GM/INCH UDPKT TD SCH ×4 (05:37→23:49)
[2022-07-06] MEDS: LEVOTHYROXINE SODIUM 25MCG TABLET PO SCH (05:40)
[2022-07-06 06:35] LABS: HEMATOCRIT. 29.8 % (36.0-48.0); HEMOGLOBIN. 10.4 g/dL (12.0-16.0); MEAN CORPUSCULAR HEMOGLOBIN 33.2 pg (28.0-32.0); MEAN CORPUSCULAR VOLUME 94.9 fL (81.0-99.0); MEAN PLATELET VOLUME 7.8 fl (7.4-10.4); PLATELET 73 x1000/uL (130-400); RED BLOOD CELL COUNT 3.14 mill/uL (4.2-5.4); RED CELL DISTRIBUTION WIDTH 18.1 % (11.6-14.6)
[2022-07-06] MEDS: CLONIDINE 0.1MG TABLET PO PRN (06:53)
[2022-07-06] MEDS: DOCUSATE SODIUM 100MG CAPSULE PO SCH ×2 (09:00→17:00)
[2022-07-06] MEDS: PANTOPRAZOLE SODIUM 40 MG/VIAL IV SCH ×2 (09:06→17:55)
[2022-07-06] MEDS: AMLODIPINE 10MG TABLET PO SCH (09:06)
[2022-07-06] MEDS: CYANOCOBALAMIN 1000MCG/ML VIAL IM SCH (09:06)
[2022-07-06] MEDS ORDERED: ZOLPIDEM TARTRATE 5MG TABLET PO PRN (09:30)
[2022-07-06 10:43] LABS: PLATELET ESTIMATE DECREASED
[2022-07-06] MEDS ORDERED: MAGNESIUM 2 G PREMIX 50 ML IV SCH (15:00)
[2022-07-06] MEDS ORDERED: CEFAZOLIN 1000MG PREMIX 50 ML IV SCH (15:00)
[2022-07-06] MEDS: SODIUM CHLORIDE 0.9% 1,000 ML IV SCH (15:20)
[2022-07-06] MEDS: CEFAZOLIN 1000MG PREMIX 50 ML IV SCH (17:55)
[2022-07-06] MEDS: SENNOSIDES/DOCUSATE SOD 8.6/50MG TABLET PO SCH (20:45)
[2022-07-07] VITALS: BP 172/56
[2022-07-07 01:05] VITALS: BP 142/43
[2022-07-07 04:00] VITALS: BP 146/46
[2022-07-07] MEDS: CEFAZOLIN 1000MG PREMIX 50 ML IV SCH (06:21)
[2022-07-07] MEDS: GUAIFENESIN 200MG/10ML SUGAR FREE UDC PO PRN (06:21)
[2022-07-07] MEDS: NITROGLYCERIN OINT 1GM/INCH UDPKT TD SCH (06:21)
[2022-07-07] MEDS: LEVOTHYROXINE SODIUM 25MCG TABLET PO SCH (06:21)
[2022-07-07 06:56] LABS: HEMATOCRIT. 29.3 % (36.0-48.0); HEMOGLOBIN. 10.3 g/dL (12.0-16.0); MEAN CORPUSCULAR HEMOGLOBIN 33.4 pg (28.0-32.0); MEAN CORPUSCULAR VOLUME 94.8 fL (81.0-99.0); MEAN PLATELET VOLUME 8.3 fl (7.4-10.4); PLATELET 70 x1000/uL (130-400); RED BLOOD CELL COUNT 3.09 mill/uL (4.2-5.4); RED CELL DISTRIBUTION WIDTH 17.4 % (11.6-14.6)
[2022-07-07 08:00] VITALS: BP 144/48
[2022-07-07] MEDS: CYANOCOBALAMIN 1000MCG/ML VIAL IM SCH (08:35)
[2022-07-07] MEDS: PANTOPRAZOLE SODIUM 40 MG/VIAL IV SCH (08:35)
[2022-07-07] MEDS: DOCUSATE SODIUM 100MG CAPSULE PO SCH (08:36)
[2022-07-07] MEDS: AMLODIPINE 10MG TABLET PO SCH (08:36)
[2022-07-07] MEDS: SODIUM CHLORIDE 0.9% 1,000 ML IV SCH (08:42)
[2022-07-07] MEDS ORDERED: CEPH500T MT (10:01)
[2022-07-07] MEDS ORDERED: ISOS20TA57 MT (10:01)
[2022-07-07 10:23] VITALS: BP 144/48
[2022-07-07 10:35] LABS: ATYPICAL LYMPHOCYTES 7
[2022-07-07 10:36] LABS: PLATELET ESTIMATE DECREASED
[2022-07-07] MEDS: CLONIDINE 0.1MG TABLET PO PRN (13:07)
== END 2022-07-07 13:34 | disposition home health service (06) | DRG 834 ==
LOC: ER 01:11 → 7EST 03:38 → ENRESERV 09:01
PROVIDERS: ADMIT Internal Medicine; ATTEND Internal Medicine
PROC: 30233N1 Transfusion of Nonautologous Red Blood Cells into Peripheral Vein, Percutaneous Approach (ICD-10-PCS; 2022-07-02)
PROC: 07DQ3ZZ Extraction of Sternum Bone Marrow, Percutaneous Approach (ICD-10-PCS; principal; 2022-07-04)
DX: C92.00 Acute myeloblastic leukemia, not having achieved remission (principal); N17.0 Acute kidney failure with tubular necrosis; C85.90 Non-Hodgkin lymphoma, unspecified, unspecified site; N39.0 Urinary tract infection, site not specified; D62 Acute posthemorrhagic anemia; D50.9 Iron deficiency anemia, unspecified; I95.2 Hypotension due to drugs; I13.10 Hypertensive heart and chronic kidney disease without heart failure, with stage 1 through stage 4 chronic kidney disease, or unspecified chronic kidney disease; D69.6 Thrombocytopenia, unspecified; E03.9 Hypothyroidism, unspecified; E78.5 Hyperlipidemia, unspecified; Z20.822 Contact with and (suspected) exposure to COVID-19; M19.90 Unspecified osteoarthritis, unspecified site; E78.00 Pure hypercholesterolemia, unspecified; I25.10 Atherosclerotic heart disease of native coronary artery without angina pectoris; N18.32 Chronic kidney disease, stage 3b; M62.50 Muscle wasting and atrophy, not elsewhere classified, unspecified site; E11.22 Type 2 diabetes mellitus with diabetic chronic kidney disease; E11.51 Type 2 diabetes mellitus with diabetic peripheral angiopathy without gangrene; T46.5X5A Adverse effect of other antihypertensive drugs, initial encounter; Z79.82 Long term (current) use of aspirin; Z79.4 Long term (current) use of insulin; Z90.710 Acquired absence of both cervix and uterus; Z85.42 Personal history of malignant neoplasm of other parts of uterus; Z86.718 Personal history of other venous thrombosis and embolism; Y92.89 Other specified places as the place of occurrence of the external cause
CPT/HCPCS: 36415; 38220; 71045; 74018; 80048; 80053; 80202; 80305; 81003; 82607; 82728; 82746; 82962; 83010; 83540; 83550; 83615; 83735; 84100; 84439; 84443; 84484; 85014; 85018; 85025; 85044; 85060; 85097; 86850; 86880; 86900; 86920; 87077; 87186; 87426; 93005; 93970; 99291; A6261; C1893; C9113; J0690; J1100; J1442; J2185; J2405; J2704; J2765; J3370; J3420; J3475; J7030; J7050; P9016; A4315

== ENCOUNTER → 2022-09-15 | Outpatient (CLI) | payer MEDICARE, MEDICAID ==
[~2022-09-15] MED LIST changes: -DOXA2TAB2 PO; +DOXA4TAB3 PO; +ISOS20TA57 PO; +METO-385 PO; -NEBI10TA2 PO; +NIFE-32 PO; -PRAV20TA57 PO; -SITA25TA3 PO; +SITA50TA3 PO
[2022-09-15 11:17] LABS: RED CELL DISTRIBUTION WIDTH 14.8 % (11.6-14.6)
[2022-09-15 11:19] LABS: MEAN CORPUSCULAR HEMOGLOBIN 29.9 pg (28.0-32.0); MEAN CORPUSCULAR VOLUME 90.5 fL (81.0-99.0); MEAN PLATELET VOLUME 8.9 fl (7.4-10.4); RED BLOOD CELL COUNT 1.84 mill/uL (4.2-5.4)
[2022-09-15 11:48] LABS: HEMATOCRIT. 16.6 % (36.0-48.0); HEMOGLOBIN. 5.5 g/dL (12.0-16.0); PLATELET 12 x1000/uL (130-400)
[2022-09-15 14:58] LABS: NUCLEATED RED BLOOD CELLS 6 /100 WBC; PLATELET ESTIMATE MARKEDLY DECREASED
== END | disposition home or self-care (01) ==
LOC: LAB 10:48
PROVIDERS: ATTEND Internal Medicine Hematology & Oncology
DX: C92.00 Acute myeloblastic leukemia, not having achieved remission (principal)
CPT/HCPCS: 36415; 85025